=== PATIENT | male | born 1975 | race Caucasian/White ===

== ENCOUNTER 2024-08-02 17:34 | Emergency (ER) | payer SELFPAY ==
[~2024-08-02] VITALS: Ht 170.2 cm; Wt 113.4 kg
[2024-08-02 17:38] VITALS: BP 143/87; PULSE 78; RESP 20; TEMP 98.1; O2SAT 100
[2024-08-02] MEDS: ACETAMINOPHEN EXTRA STRENGTH 500 MG TAB PO ONE (18:57)
[2024-08-02] MEDS: KETOROLAC 30 MG/ML VIAL IM ONE (18:57)
[2024-08-02] MEDS ORDERED: CAPS1ADH5 TP (20:14)
[2024-08-02] MEDS ORDERED: METH-1681 PO (20:14)
[2024-08-02] MEDS ORDERED: NAPR-1704 PO (20:14)
== END 2024-08-02 20:24 | disposition home or self-care (01) ==
LOC: MED 17:34
DX: S39.012A Strain of muscle, fascia and tendon of lower back, initial encounter (principal); S86.912A Strain of unspecified muscle(s) and tendon(s) at lower leg level, left leg, initial encounter; Z79.899 Other long term (current) drug therapy; W18.39XA Other fall on same level, initial encounter; Y93.89 Activity, other specified; Y92.89 Other specified places as the place of occurrence of the external cause; Y99.8 Other external cause status
CPT/HCPCS: 72100; 73562; 96372; 99284; J1885; Q0092